=== PATIENT | female | born 1990 | race Asian ===

== ENCOUNTER 2021-01-01 15:52 | Emergency (ER) | payer SELFPAY ==
[~2021-01-01] VITALS: Ht 152.4 cm; Wt 61.0 kg
[2021-01-01 16:20] LABS: BASO # 0.1 x10^3/uL (0.0-0.2); BASO % 1 % (0-3); EOS # 0.1 x10^3/uL (0.0-0.7); EOS % 1 % (0-3); HEMATOCRIT 38.9 % (36.0-47.0); HEMOGLOBIN 12.9 g/dL (12.0-15.5); LYMPH # 2.5 x10^3/uL (1.0-4.8); LYMPH % 26 % (24-48); MEAN CORPUSCULAR HEMOGLOBIN 30 pg (25-35); MEAN CORPUSCULAR HGB CONC 33 g/dL (31-37); MEAN CORPUSCULAR VOLUME 92 fL (79-100); MONO # 0.6 x10^3/uL (0.0-1.1); MONO % 6 % (0-9); NEUT # 6.4 x10^3/uL (1.8-7.7); NEUT % 66 % (31-73); PLATELET COUNT 295 x10^3/uL (140-400); RED BLOOD COUNT 4.22 x10^6/uL (3.50-5.40); RED CELL DISTRIBUTION WIDTH 14.1 % (11.5-14.5); WHITE BLOOD COUNT 9.7 x10^3/uL (4.0-11.0)
--- NOTE | 2021-01-01 16:29 | RAD ---
Single view chest dated 01/01/2021: No comparison available. Clinical Indication: Right-sided chest pain for one year. Findings: Single upright portable exam of the chest was performed. Heart size and mediastinal contours are with in normal limits given technique. The lungs are clear without evidence of focal consolidation. Vascul ar interstitium is within normal limits. Impression:: Negative portable chest. Electronically signed by: Iker Christian MD (01/01/2021 4:27 PM) JASMINA
[2021-01-01 16:32] LABS: BARBITURATES NEG (NEG); BENZODIAZEPINES NEG (NEG); CANNABINOIDS NEG (NEG); COCAINE NEG (NEG); METHADONE NEG (NEG); OPIATES NEG (NEG); PHENCYCLIDINE NEG (NEG)
[2021-01-01 16:37] LABS: AMPHETAMINE/METHAMPHETAMINE NEG (NEG)
[2021-01-01 17:01] LABS: ALBUMIN 3.7 g/dL (3.4-5.0); CALCIUM 8.5 mg/dL (8.5-10.1); CREATININE 0.8 mg/dL (0.6-1.0); GFR 84.2; MAGNESIUM 1.8 mg/dL (1.8-2.4); TOTAL BILIRUBIN 0.2 mg/dL (0.2-1.0); TOTAL PROTEIN 7.3 g/dL (6.4-8.2)
[2021-01-01 17:06] LABS: POTASSIUM 4.5 mmol/L (3.5-5.1)
--- NOTE | 2021-01-01 17:11 | EKG ---
[facility] [address] [place] [address] Test Date: 2021-01-01 Test Time: 15:57:50 Pat Name: DANIEL MO Department: Room: Gender: F Director Of Recruitment And Admissions: / : 1990 Requested By: TIFFANIE VERAS Order Number: [id number] Reading MD: Measurements Intervals Hilger Rate: 72 P: 34 OH: 154 QRS: 24 QRSD: 64 T: 5 QT: 390 QTc: 429 Interpretive Statements SINUS RHYTHM NORMAL ECG RI6.02 No previous ECG available for comparison
[2021-01-01 17:23] LABS: BILIRUBIN,URINE NEGATIVE (NEG); CLARITY,URINE CLEAR; COLOR,URINE YELLOW; NITRITE,URINE NEGATIVE (NEG); PROTEIN,URINE NEGATIVE (NEG-TRACE); UROBILINOGEN,URINE 0.2 mg/dL (0.2 mg/dL)
[2021-01-01 17:28] LABS: BACTERIA,URINE MANY /HPF (0-FEW)
[2021-01-01 17:29] LABS: RBC,URINE 0 /HPF (0-2); WBC,URINE OCC /HPF (0-4)
[2021-01-01 17:33] VITALS: BP 102/59
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
== END 2021-01-01 18:00 | disposition home or self-care (01) ==
LOC: ER 15:52
DX: R07.89 Other chest pain (principal); F17.200 Nicotine dependence, unspecified, uncomplicated; Z98.890 Other specified postprocedural states
CPT/HCPCS: 36415; 71045; 80053; 80307; 81001; 81025; 83735; 83880; 84443; 84484; 85025; 85379; 93005; 99285